=== PATIENT | male | born 1985 | race Caucasian/White ===

== ENCOUNTER 2018-07-01 10:16 | Emergency (ER) | payer OTHER ==
--- NOTE | 2018-07-01 12:25 | ED Physician Documentation ---
PD HPI BACK PAIN - Stated complaint Stated Complaint: L LEG PX - Chief complaint Chief Complaint: Back Pain - History obtained from History obtained from: Patient - History of Present Illness Timing - onset: Other (This is a very pleasant 33-year-old gentleman with history of left-sided sciatica which is exacerbated over the last 5 weeks. He has a tingly numb and burning pain radiating from the left sciatic notch into the left thigh. He has been in physical therapy which sometimes helps. He recently started gabapentin and naproxen and Tylenol which are not that helpful. He denies weakness or complete numbness but does not have tingling over the lateral left thigh. There is no saddle anesthesia or fevers.) Review of Systems Constitutional: denies: Fever, Chills GI: denies: Abdominal Pain, Nausea, Vomiting Skin: denies: Rash, Lesions Musculoskeletal: reports: Back pain. denies: Neck pain PD PAST MEDICAL HISTORY - Past Medical History Past Medical History: Yes HEENT: None Musculoskeletal: Chronic back pain, Other - Past Surgical History Past Surgical History: No - Present Medications Home Medications: Ambulatory Orders Medication Instructions Recorded Confirmed Cyclobenzaprine [Flexeril] 10 mg PO TID PRN #20 tablet 07/01/18 Oxycodone HCl/Acetaminophen 1 - 2 each PO Q6H PRN #14 tablet 07/01/18 [Percocet 5-325 mg Tablet] predniSONE [Deltasone] 20 mg PO [id number] #21 tab 07/01/18 - Allergies Allergies/Adverse Reactions: Allergies Allergy/AdvReac Type Severity Reaction Status Date / Time No Known Drug Allergies Allergy Verified 07/01/18 10:35 - Social History Does the pt smoke?: No Smoking Status: Never smoker PD ED PE NORMAL - Vitals Vital signs reviewed: Yes - General General: Alert and oriented X 3, No acute distress - Back Back: No CVA TTP, No spinal TTP, Other (The patient has equal and normal Achilles and patellar reflexes bilaterally. Normal sensation in all areas of the legs. Patient denies saddle anesthesia. Normal strength in flexion- extension at the ankles, knees, and flexion of the hips.) - Extremities Extremities: No edema, No calf tenderness / cord Results - Vitals Vitals: Vital Signs - 24 hr 07/01/18 07/01/18 10:28 12:32 Temperature 36.3 C L Heart Rate 68 77 Respiratory 20 15 Rate Blood Pressure 137/76 H 135/83 H O2 Saturation 100 100 Oxygen O2 Source Room air PD MEDICAL DECISION MAKING - Sepsis Event Vital Signs: Vital Signs - 24 hr 07/01/18 07/01/18 10:28 12:32 Temperature 36.3 C L Heart Rate 68 77 Respiratory 20 15 Rate Blood Pressure 137/76 H 135/83 H O2 Saturation 100 100 Oxygen O2 Source Room air Departure - Departure Disposition: 01 Home, Self Care Clinical Impression: Sciatica Qualifiers: Laterality: left Qualified Code(s): M54.32 - Sciatica, left side Condition: Good Record reviewed to determine appropriate education?: Yes Instructions: ED Sciatica Prescriptions: Cyclobenzaprine [Flexeril] 10 mg PO TID PRN #20 tablet PRN Reason: Spasms Oxycodone HCl/Acetaminophen [Percocet 5-325 mg Tablet] 1 - 2 each PO Q6H PRN #14 tablet PRN Reason: pain predniSONE [Deltasone] 20 mg PO [id number] #21 tab Comments: Get scheduled for physical therapy as discussed. Return for new or worsening symptoms. [place] given previous abnormal MRI with disc herniations and persistent symptoms. Your blood pressure was elevated today on check into the emergency department. This does not mean that you have hypertension, it is a common phenomenon to come to the emergency department and have elevated blood pressure. I recommend that you see your primary care physician within the week to have it rechecked when you are feeling better. Do not drink or drive while taking narcotic pain medication. Note that many narcotic pain relievers also contain Tylenol/acetaminophen. Please ensure that your total dose of acetaminophen from all sources does not exceed 3 g (3000 mg) per day. You may get constipated while on this medication. Take a stool softener such as Colace twice a day while you are on it. Also add an [id number] laxative such as senna or MiraLAX on any day that you do not have a bowel movement. If you received a narcotic pain medication or sedative while in the emergency department, do not drive for the next 24 hours. Discharge Date/Time: 07/01/18 12:33
[2018-07-01 12:33] VITALS: BP 135/83
== END 2018-07-01 12:33 | disposition home or self-care (01) ==
LOC: ED 10:16
DX: M54.32 Sciatica, left side (principal); G89.29 Other chronic pain; R03.0 Elevated blood-pressure reading, without diagnosis of hypertension
CPT/HCPCS: 99283

== ENCOUNTER 2018-08-21 12:15 | Outpatient (CLI) | payer OTHER ==
--- NOTE | 2018-08-21 15:47 | MRI Report ---
Reason: RADICULOPATHY, LUMBAR REGION Procedure Date: 08/21/2018 Accession Number: [id number] / [id number] Procedure: MRI - Lumbar Spine W/O CPT Code: FULL RESULT: MRI LUMBAR SPINE WITHOUT CONTRAST INDICATION: 33-year-old male with low back pain and left leg numbness. TECHNIQUE: 1. Sagittal STIR, T1 and T2. 3. Axial T1 and T2. COMPARISON: None. FINDINGS: There appear to be 5 [id number], lumbar type vertebrae. There is straightening of the lumbar alignment with very minimal lordosis. Also demonstrated is minor retrolisthesis of L4 on L5 measuring 2-3 mm. Alignment is otherwise unremarkable. There is absence of normal T2 signal from the L4-L5 and L5-S1 disks, confirming disk degeneration. The lumbar disks otherwise appear well hydrated. The lumbar disk space heights appear maintained throughout. There is minimal anterior wedging of the T11, T12 and L1 vertebral bodies. This can be seen as a normal anatomical variant at the thoracolumbar junction. The vertebral body heights are otherwise preserved. Type II reactive marrow changes are identified in the vertebral endplates at L5-S1. An intraosseous hemangioma is demonstrated in the posterolateral aspect of the L3 vertebral body on the right with extension into the pedicle. The marrow signal intensity is otherwise unremarkable. The conus terminates in appropriate fashion above the L1-L2 disk level. There is no abnormal thickening or lipomatous change of the filum. Axial images: T12-L1: No disk herniation. No spinal canal or foraminal stenosis. L1-L2: No disk herniation. No spinal canal or foraminal stenosis. L2-L3: Minor intraforaminal disk bulge bilaterally. Suspect early degenerative facet arthrosis. Mild left facet hypertrophy. Mild prominence of the intralaminar fat pad. Mass effect on the dorsal aspect of the thecal sac without significant associated spinal stenosis. Mild left foraminal stenosis. L3-L4: Minimal intraforaminal disk displacement bilaterally. Degenerative facet arthrosis with minor bony hypertrophy. No spinal stenosis. Minimal foraminal narrowing. L4-L5: Retrolisthesis. Small, posterior extrusion projecting into the spinal canal for roughly 2 mm. Degenerative facet arthrosis with mild to moderate bony hypertrophy. Mild to moderate redundancy of the ligamenta flava. The subarticular zones are stenosed, right greater than left. Traversing L5 nerve roots are contacted by disk anteriorly and ligamentum flavum posteriorly in the subarticular zones. There appears to be mild flattening of the right L5 nerve root in the subarticular zone. No significant central zone spinal stenosis. Broad-based intra/extraforaminal protrusions bilaterally. Mild left and mild to moderate right foraminal stenoses. L5-S1: There is a fairly large extrusion, just to the left of midline, projecting into the spinal canal for roughly 8 mm. In addition, there is a small amount of material of slightly higher T2 signal in the epidural space, adjacent to the extrusion that probably represents previously extruded, sequestered disk material. The combination causes severe left subarticular zone stenosis. The left S1 nerve root is displaced posteriorly and laterally by the disk fragment. It appears to be compressed against the anterior surface of the left ligamentum flavum. In addition, there is mass effect on the left side of the thecal sac without obvious compromise of the left S2 nerve root. No right subarticular zone stenosis. Small right intra/extraforaminal protrusion. Slightly larger left intra/extraforaminal extrusion. Mild right and mild to moderate left foraminal stenoses. IMPRESSION: 1. Small, broad-based posterior extrusion at L4-L5 in combination with other factors results in bilateral L4-L5 subarticular zone (lateral recess) stenoses. There could be compromise of traversing L5 nerve roots, especially on the right. Recommend clinical correlation for possible right L5 radiculopathy. 2. Left-sided disk herniation at L5-S1 with probable, small sequestered disk fragment results in high-grade left subarticular zone stenosis with posterior and lateral deflection of traversing left S1 nerve root and almost certain impingement of the left S1 nerve root. Recommend clinical correlation for left S1 radiculopathy.
== END 2018-08-21 12:16 | disposition home or self-care (01) ==
LOC: DI 12:15
DX: M51.36 Other intervertebral disc degeneration, lumbar region (principal); M51.37 Other intervertebral disc degeneration, lumbosacral region; M47.9 Spondylosis, unspecified; M43.16 Spondylolisthesis, lumbar region; M51.26 Other intervertebral disc displacement, lumbar region; M51.27 Other intervertebral disc displacement, lumbosacral region; M48.061 Spinal stenosis, lumbar region without neurogenic claudication; M48.07 Spinal stenosis, lumbosacral region
CPT/HCPCS: 72148

== ENCOUNTER 2018-10-08 18:35 | Emergency (ER) | payer OTHER ==
--- NOTE | 2018-10-08 21:48 | ED Physician Documentation ---
PD HPI BACK PAIN - Stated complaint Stated Complaint: LOW BACK PX/INJ - Chief complaint Chief Complaint: Back Pain - History obtained from History obtained from: Patient - History of Present Illness Timing - onset: Today Timing - duration: Hours (8-10) Timing - details: Abrupt onset, Still present (he has had pain in low back with L5/S1 disc protrusion on MRI and left sciatic pain. NO leg weakness. Today with lifting gear bag, had abrupt worse pain in back and feeling of numbness in perineal area. Able to hold urine and then urinate at will. Denies weakness in legs.) Location: Lower, Left Quality: Pain, Spasm Associated symptoms: Numbness (posterior left thigh and perineal/perirectal area.). No: Fever, Weakness Worsened by: Movement Contributing factors: Lifting, Twisting Similar symptoms before: Diagnosis (L5?S1 HNP with radiculitis to left.) Recently seen: Not recently seen Review of Systems Constitutional: denies: Fever, Chills, Myalgias Nose: denies: Rhinorrhea / runny nose, Congestion Throat: denies: Sore throat Respiratory: denies: Cough GI: denies: Abdominal Pain, Nausea, Vomiting, Diarrhea : denies: Dysuria, Frequency, Unable to Void, Incontinent Skin: denies: Rash Neurologic: reports: Numbness (left posterior thigh and now also perirectal and periscrotal/genilatia.). denies: Focal weakness PD PAST MEDICAL HISTORY - Past Medical History HEENT: None Musculoskeletal: Chronic back pain, Other - Past Surgical History Past Surgical History: No - Present Medications Home Medications: Ambulatory Orders Medication Instructions Recorded Confirmed Dexamethasone [Decadron] 4 mg PO DAILY #7 tablet 10/08/18 Gabapentin 600 mg PO TID 10/08/18 10/08/18 Ketorolac [Toradol] 10 mg PO QID 10/08/18 10/08/18 Methocarbamol 1,500 mg PO TID 10/08/18 10/08/18 Oxycodone HCl/Acetaminophen 1 - 2 each PO Q6H PRN #20 tablet 10/08/18 [Percocet 5-325 mg Tablet] - Allergies Allergies/Adverse Reactions: Allergies Allergy/AdvReac Type Severity Reaction Status Date / Time No Known Drug Allergies Allergy Verified 10/08/18 18:44 - Social History Does the pt smoke?: No Smoking Status: Never smoker Does the pt drink ETOH?: Yes Does the pt have substance abuse?: No - Immunizations Immunizations are current?: Yes PD ED PE NORMAL - Vitals Vital signs reviewed: Yes - General General: Alert and oriented X 3, No acute distress, Well developed/nourished - HEENT HEENT: Ears normal, Pharynx benign - Cardiac Cardiac: RRR, No murmur - Respiratory Respiratory: Clear bilaterally - Abdomen Abdomen: Soft, Non tender - Male Male : Other (less sensation genitalia area, but can feel sensation and distinguish sharpness. Has positive, normal cremaster reflex and patellar ones. Good rectal tone and normal anal wink. ) - Back Back: No CVA TTP, Other (tender in lower lumbar muscles, more to the left, and not hurting midline vertebra itself. ) - Derm Derm: Normal color, No rash - Extremities Extremities: No deformity, No tenderness to palpate, Normal ROM s pain, No edema, No calf tenderness / cord - Neuro Neuro: Alert and oriented X 3, fare collector 2-12 intact, No motor deficit, Normal speech Results - Vitals Vitals: Oxygen O2 Source Room air PD MEDICAL DECISION MAKING - ED course Complexity details: considered differential (has had L5/S1 sciatica with surgery planned Nov 28. Has abrupt pain with lifting today and has new numbness sacral nerve areas. Has numbness feeling but does have sensation to touch/pinprick and his reflexes are good (cremaster) and has good Kagal muscle use and rectal tone. Able to hold urine and void at will. So I don't feel it is emergent right now. He can contact his back surgeon tomorrow to discuss progression of symptoms. ), d/w patient Departure - Departure Disposition: 01 Home, Self Care Clinical Impression: Sacral nerve root compression Low back pain Qualifiers: Chronicity: chronic Back pain laterality: left Sciatica presence: with sciatica Sciatica laterality: sciatica of left side Qualified Code(s): M54.42 - Lumbago with sciatica, left side Sciatic nerve pain Qualifiers: Laterality: unspecified laterality Qualified Code(s): M54.30 - Sciatica, unspecified side Condition: Stable Record reviewed to determine appropriate education?: Yes Instructions: ED Sciatica Prescriptions: Dexamethasone [Decadron] 4 mg PO DAILY #7 tablet Oxycodone HCl/Acetaminophen [Percocet 5-325 mg Tablet] 1 - 2 each PO Q6H PRN #20 tablet PRN Reason: pain Comments: No heavy lifting or vigorous activity for the next 3-5 days until improving or follow-up. Use the methocarbamol muscle relaxant 3-4 times a day for spasms and stiffness. Decadron steroid anti-inflammatory daily for the next week. I would suggest perhaps naproxen 500 mg twice daily rather than the ketorolac but either one is okay. Add oxycodone pain medicine if needed for worse pain. Contact your spine surgeon's office in the next couple of days and update them on the new symptoms. Return if worsening. Discharge Date/Time: 10/08/18 22:50
[2018-10-08] MEDS ORDERED: CHERRY SYRUP 10 ML UDC PO ONE (22:25)
[2018-10-08] MEDS: oxyCODONE 5 MG TABLET PO STA (22:27)
[2018-10-08] MEDS: DEXAMETHASONE 10 MG/ML VIAL PO STA (22:27)
[2018-10-08] MEDS: oxyCODONE/ACET 5/325 Prepack 4 PO STA (22:27)
[2018-10-08 22:50] VITALS: BP 132/72
== END 2018-10-08 22:50 | disposition home or self-care (01) ==
LOC: ED 18:35
DX: M54.42 Lumbago with sciatica, left side (principal); G89.29 Other chronic pain
CPT/HCPCS: 99283